=== PATIENT | male | born 1940 | race Caucasian/White ===

== ENCOUNTER 2017-02-02 20:38 | Emergency (ER) | payer BC ==
[~2017-02-02] VITALS: Ht 162.6 cm; Wt 70.3 kg
[2017-02-02] MEDS ORDERED: LISINOPRIL 40 MG TABLET (20:54)
[2017-02-02] MEDS ORDERED: SIMVASTATIN 40 MG TABLET (20:54)
[2017-02-02] MEDS ORDERED: ATENOLOL 50 MG TABLET (20:54)
--- NOTE | 2017-02-02 21:55 | NUR ---
Patient discharged to home in stable conditon. Written and verbal after care instructions given. Patient verbalizes understanding of instructions.
[2017-02-02] MEDS ORDERED: DIAZEPAM 5 MG TABLET ONE (22:03)
== END 2017-02-02 21:56 | disposition home or self-care (01) ==
LOC: ER 20:42
DX: S86.812A Strain of other muscle(s) and tendon(s) at lower leg level, left leg, initial encounter (principal); X50.9XXA Other and unspecified overexertion or strenuous movements or postures, initial encounter; Y93.89 Activity, other specified; Y92.89 Other specified places as the place of occurrence of the external cause; Y99.8 Other external cause status; I10 Essential (primary) hypertension; Z88.2 Allergy status to sulfonamides
CPT/HCPCS: A4663